=== PATIENT | male | born 1990 | race Asian ===

== ENCOUNTER 2018-02-05 11:23 | Emergency (ER) | payer OTHER ==
[~2018-02-05] VITALS: Ht 172.7 cm; Wt 90.7 kg
[2018-02-05 11:48] VITALS: BP 129/73
[2018-02-05] MEDS ORDERED: cefTRIAXone SOD 1,000 MG VL IM ONE (13:15)
== END 2018-02-05 13:31 | disposition home or self-care (01) ==
LOC: ER 11:23
DX: S00.06XA Insect bite (nonvenomous) of scalp, initial encounter (principal); W57.XXXA Bitten or stung by nonvenomous insect and other nonvenomous arthropods, initial encounter; Y93.89 Activity, other specified; Y99.8 Other external cause status; Y92.89 Other specified places as the place of occurrence of the external cause
CPT/HCPCS: 96372; 99283; J0696